=== PATIENT | male | born 1935 | race Caucasian/White ===

== ENCOUNTER 2018-06-02 14:44 | Inpatient (IN) | payer OTHER, BC ==
[2018-06-02] MEDS ORDERED: NS 1,000 ML IV ONE (15:23)
[2018-06-02 15:45] LABS: PLATELET COUNT 202 10^3/uL (150-400)
[2018-06-02] MEDS ORDERED: IOPAMIDOL (ISOVUE-370) 150 ML BTL IV ONE (15:55)
--- NOTE | 2018-06-02 16:12 | EDPHY ---
HPI/HX/ROS/PE/MDM Narrative: CHIEF COMPLAINT: Labored breathing, stuffy nose, shortness of breath HISTORY OF PRESENT ILLNESS: This is an 83-year-old male with a history of Parkinson's disease who presents with his family with reports of labored breathing which was noted yesterday, last evening, and today. Patient lives in [place] and flew here on Tuesday, 2 days ago. Daughter reports that he had some labored breathing with simple exertion yesterday, reports an episode of labored breathing last night while he was sleeping, and family again noted increased dyspnea on exertion today. Patient also reports falling yesterday. No loss of consciousness. He does have Parkinson's disease and is using a walker as he has had frequent falls over the last several months. He also reports chronic nasal congestion and stuffy nose. Patient denies a fever or chills. Denies any chest pain. Denies palpitation, vomiting, diarrhea. Patient and family denies significant cough. Denies a history of cardiac disease, hypertension, congestive heart failure. REVIEW OF SYSTEMS: A comprehensive 10 system review of systems was reviewed and is otherwise negative aside from elements mentioned in the history of present illness and medical decision making. PAST MEDICAL HISTORY: Parkinson, skin rash, BPH. SOCIAL HISTORY: Here with family members. Traveled here from [place] VITAL SIGNS Reviewed by me. GENERAL: Thin gentleman, visibly tachypneic on my examination. Blood pressure noted to be 84/50 with an O2 sat of 91%. Sounds somewhat congested. HEENT: Atraumatic. Eyes: No icterus, no injection. Mouth: moist mucous membranes. No erythema or lesions. Neck: supple with no adenopathy. LUNGS: Distant breath sounds but clear. No wheezing rhonchi or rales. CARDIAC: Regular rate and rhythm. ABDOMEN: Soft, nontender, nondistended, bowel sounds normal. BACK: No CVA tenderness. EXTREMITIES: No trauma. Trace edema at the calf. Range of motion is normal throughout. NEURO: Alert and oriented, grossly nonfocal. SKIN: Warm and dry, no rash. PSYCHIATRIC: Normal mentation, no agitation. ED Course: EKG demonstrates left bundle branch block. Bedside troponin is positive at 0.16. Chest x-ray: Central venous prominence, cardiomegaly. Streaky prominence in the right lower lobe Patient received aspirin 324 mg. D-dimer is elevated. CT scan of the chest was ordered. BNP 5500. CT scan demonstrates no pulmonary emboli, possibility of a right lower lobe pneumonia. Patient was admitted to the hospital for treatment of his shortness of breath, hypotension, thought to be secondary to cardiac causes with possibility of pneumonia. Admitting physician Dr. Moshe Cunningham. MDM: Differential diagnosis for the patient's shortness of breath was considered including but not limited to pulmonary infectious processes, COPD exacerbation, pulmonary emboli, pulmonary edema, congestive heart failure, and cardiac causes. - Data Points Imaging Results: CXR: Impression: 1. Moderate cardiomegaly with central vascular prominence. 2. Thickened bronchioles, as can be seen with underlying bronchitis. 3. Streaky right basilar opacity, likely representing subsegmental atelectasis or scarring. 4. Blunting of the right costophrenic angle, suggesting a tiny pleural effusion. 5. Favor hiatal hernia. Dictated By: Marguerite Murphy MD CT Chest: Impression: 1. No evidence of pulmonary embolic disease. 2. Cardiac enlargement and left ventricular hypertrophy 3. Hilar mediastinal adenopathy; this could be reactive with clinical correlation and follow-up to be considered as clinically directed. 4. Basilar opacities, right greater than left probably atelectasis with clinical correlation to exclude a right lower lobe pneumonia. 5. See above report for additional findings. Results called to the Emergency Department on 06/02/2018 at 16:34. Dictated By: Lc White MD Imaging: Discussed imaging studies w/ housecalls nurse Radiologist, I viewed and interpreted images myself Laboratory Results: Laboratory Results 06/02/18 15:25 06/03/18 03:30 Medications Given: Aspirin Buffered (Aspirin Ec) 81 mg PO DAILY [facility] Stop: 11/30/18 08:59 Last Admin: 06/04/18 11:52 Dose: 81 mg Carbidopa/Levodopa (Sinemet) 1 tab PO BID@ AISHWARYA Stop: 11/29/18 22:59 Last Admin: 06/04/18 13:03 Dose: Not Given Carbidopa/Levodopa (Sinemet) 1.5 tab PO BID@18 AISHWARYA Stop: 11/29/18 17:59 Last Admin: 06/04/18 13:34 Dose: 1.5 tab Cholecalciferol (Vitamin D) 1,000 units PO DAILY AISH[facility]A Stop: 11/30/18 08:59 Last Admin: 06/04/18 11:49 Dose: 1,000 units Donepezil HCl (Aricept) 10 mg PO DAILY AISHWARYA Stop: 11/30/18 08:59 Last Admin: 06/04/18 11:52 Dose: 10 mg Enoxaparin Sodium (Lovenox) 40 mg SC DAILY [facility] Stop: 11/30/18 08:59 Last Admin: 06/04/18 13:57 Dose: 40 mg Fesoterodine Fumarate (Toviaz) 8 mg PO HS [facility] Stop: 11/29/18 20:59 Last Admin: 06/03/18 21:08 Dose: 8 mg Furosemide (Lasix) 20 mg PO DAILY [facility] Stop: 12/01/18 09:44 Last Admin: 06/04/18 11:49 Dose: 20 mg Melatonin (Melatonin) 12 mg PO HS [facility] Stop: 11/29/18 20:59 Last Admin: 06/03/18 23:03 Dose: 12 mg Memantine (Namenda) 10 mg PO BID AISHWARYA Stop: 11/29/18 20:59 Last Admin: 06/04/18 11:52 Dose: 10 mg Miscellaneous Medication (Minocycline 100mg Cap) 100 mg PO HS [facility] Stop: 06/13/18 21:01 Last Admin: 06/03/18 21:08 Dose: 100 mg Miscellaneous Medication (Minocycline 100mg Cap) 200 mg PO DAILY [facility] Stop: 06/13/18 09:01 Last Admin: 06/04/18 15:03 Dose: 100 mg Pantoprazole Sodium (Protonix) 40 mg PO DAILY [facility] Stop: 11/30/18 08:59 Last Admin: 06/04/18 11:50 Dose: 40 mg Discontinued Medications Aspirin (Aspirin) 324 mg PO EDNOW ONE Stop: 06/02/18 16:15 Last Admin: 06/02/18 17:16 Dose: 324 mg Furosemide (Lasix Injection) 20 mg IVP EDNOW ONE Stop: 06/02/18 16:15 Last Admin: 06/02/18 17:15 Dose: 20 mg Furosemide (Lasix Injection) 20 mg IVP ONCE ONE Stop: 06/03/18 08:34 Last Admin: 06/03/18 10:16 Dose: 20 mg Furosemide (Lasix Injection) 20 mg IVP BIDDIUR [facility] Stop: 11/30/18 15:14 Last Admin: 06/03/18 15:53 Dose: 20 mg Sodium Chloride (Ns) 1,000 mls @ 0 mls/hr IV ONCE ONE; Wide Open PRN Reason: Protocol Stop: 06/02/18 15:24 Last Admin: 06/02/18 15:40 Dose: 1,000 mls Point of Care Test Results: Chemistry 06/02/18 15:31 POC Troponin I 0.16 ng/mL H ng/mL (0.00-0.08) General Time Seen by Provider: 06/02/18 15:01 Initial Vital Signs: Initial Vital Signs Temperature (C) 36.7 C 06/02/18 14:49 Heart Rate 74 06/02/18 14:49 Respiratory Rate 16 06/02/18 14:49 Blood Pressure 84/50 L 06/02/18 14:49 O2 Sat (%) 91 L 06/02/18 14:49 O2 Delivery Mode Nasal Cannula O2 (L/minute) 2 Allergies/Adverse Reactions: amoxicillin [Amoxicillin] Allergy (Verified 02/18/10 12:29) lansoprazole [From Prevacid] Allergy (Verified 02/18/10 12:29) Home Medications: Medication Instructions Recorded Carbidopa/Levodopa 25/100Mg 1 tab PO BID@,06/02/18 [Sinemet 25/100 MG (*)] Carbidopa/Levodopa 25/100Mg 1.5 tab PO BID@,18 06/02/18 [Sinemet 25/100 MG (*)] Cholecalciferol Vit D3 [Vitamin D3 1,000 units PO DAILY 06/02/18 (*)] Donepezil HCl [Aricept 5 MG (*)] 10 mg PO DAILY 06/02/18 Fesoterodine Fumarate [Toviaz (*)] 8 mg PO HS 06/02/18 Herbals/Supplements -Info Only 1 ea PO DAILY 06/02/18 Ketoconazole 2% [Nizoral 2% Cream 1 sahra TP BID 06/02/18 (*)] Melatonin [Melatin] 12 mg PO HS 06/02/18 Memantine HCl 10 mg PO BID 06/02/18 Minocycline HCl 100 mg PO HS 06/02/18 Minocycline HCl [Minocin 100 mg] 200 mg PO DAILY 06/02/18 Omeprazole 20 mg PO DAILY 06/02/18 Departure - Departure Disposition: [facility] Inpatient Acute Clinical Impression: Acute coronary syndrome, Parkinsons disease Dyspnea Qualifiers: Dyspnea type: dyspnea on exertion Qualified Code(s): R06.09 - Other forms of dyspnea Congestive heart failure Qualifiers: Heart failure type: unspecified Heart failure chronicity: unspecified Qualified Code(s): I50.9 - Heart failure, unspecified Condition: Fair
[2018-06-02] MEDS ORDERED: ASPIRIN 81 MG CHEWABLE TAB PO ONE (16:14)
[2018-06-02] MEDS ORDERED: FUROSEMIDE 20 MG/2 ML VIAL IVP ONE (16:14)
[2018-06-02] MEDS ORDERED: ONDANSETRON DISINTEGRATING 4 MG TAB PO PRN (16:43)
[2018-06-02] MEDS ORDERED: ACETAMINOPHEN 325 MG TAB PO PRN (16:43)
[2018-06-02] MEDS ORDERED: ONDANSETRON 4 MG/2 ML VIAL IVP PRN (16:43)
--- NOTE | 2018-06-02 17:30 | PDGENHP ---
History and Physical - Chief Complaint SOB - History of Present Illness Rodriguez Matthews is a 83 yo M with a PMHx of Parkinson's disease who presents to [facility] for BULLOCK. He reports that he currently visiting from [place]. Onset of BULLOCK was yesterday and has been worsening since. It is associated with mostly non- productive cough. He denies any wheezing, chest pain, palpitations, edema, lightheadedness, abdominal pain, dysuria, n/v, d/c, f/c. He also fell yesterday due to some weakness without any LOC or head trauma. He reports some chronic nasal congestion but denies rhinorrhea, sore throat, or other URI symptoms. History Information - Allergies/Home Medication List Allergies/Adverse Reactions: amoxicillin [Amoxicillin] Allergy (Verified 02/18/10 12:29) lansoprazole [From Prevacid] Allergy (Verified 02/18/10 12:29) Home Medications: Carbidopa/Levodopa 25/100Mg [Sinemet 25/100 MG (*)] 1 tab PO BID@,06/02/18 [Last Taken 06/02/18] Carbidopa/Levodopa 25/100Mg [Sinemet 25/100 MG (*)] 1.5 tab PO BID@, [Last Taken 06/02/18] Cholecalciferol Vit D3 [Vitamin D3 (*)] 1,000 units PO DAILY 06/02/18 [Last Taken 06/02/18] Donepezil HCl [Aricept 5 MG (*)] 10 mg PO DAILY 06/02/18 [Last Taken 06/02/18] Fesoterodine Fumarate [Toviaz (*)] 8 mg PO HS 06/02/18 [Last Taken 06/01/18] Herbals/Supplements -Info Only 1 ea PO DAILY 06/02/18 [Last Taken 06/02/18] Ketoconazole 2% [Nizoral 2% Cream (*)] 1 sahra TP BID 06/02/18 [Last Taken ] Melatonin [Melatin] 12 mg PO HS 06/02/18 [Last Taken 06/01/18] Memantine HCl 10 mg PO BID 06/02/18 [Last Taken 06/02/18] Minocycline HCl 100 mg PO HS 06/02/18 [Last Taken 06/01/18] Minocycline HCl [Minocin 100 mg] 200 mg PO DAILY 06/02/18 [Last Taken 06/02/18] Omeprazole 20 mg PO DAILY 06/02/18 [Last Taken 06/02/18] I have personally reviewed and updated: family history, medical history, social history, surgical history - Past Medical History GERD Additional medical history: Parkinson's disease - Surgical History Reports: no pertinent surgical hx - Family History Positive for: non-pertinent - Social History Smoking Status: Former smoker Review of Systems Review of Systems: ROS: 10pt was reviewed & negative except for what was stated in HPI & below Physical Exam Physical Exam: Temp Pulse Resp BP Pulse Ox 36.9 C 75 18 118/78 95 06/02/18 16:00 06/02/18 16:00 06/02/18 16:00 06/02/18 16:00 06/02/18 16:00 Constitutional: chronically ill appearing Eyes: PERRL Ears, Nose, Mouth, Throat: moist mucous membranes Cardiovascular: regular rate and rhythym Respiratory: no respiratory distress, reduced air movement Gastrointestinal: normoactive bowel sounds, soft, non-tender abdomen Skin: warm Musculoskeletal: generalized weakness Neurologic: AAOx3 Psychiatric: flat affect Lab Data & Imaging Review 06/02/18 15:25 06/02/18 15:25 WBC 8.25 10^3/uL (3.80-9.50) 06/02/18 15:25 RBC 3.89 10^6/uL (4.40-6.38) L 06/02/18 15:25 Hgb 11.7 g/dL (13.7-17.5) L 06/02/18 15:25 Hct 35.6 % (40.0-51.0) L 06/02/18 15:25 MCV 91.5 fL (81.5-99.8) 06/02/18 15:25 MCH 30.1 pg (27.9-34.1) 06/02/18 15:25 MCHC 32.9 g/dL (32.4-36.7) 06/02/18 15:25 RDW 13.5 % (11.5-15.2) 06/02/18 15:25 Plt Count 202 10^3/uL (150-400) 06/02/18 15:25 MPV 10.3 fL (8.7-11.7) 06/02/18 15:25 Neut % (Auto) 76.9 % (39.3-74.2) H 06/02/18 15:25 Lymph % (Auto) 8.4 % (15.0-45.0) L 06/02/18 15:25 [place] % (Auto) 13.0 % (4.5-13.0) 06/02/18 15:25 Eos % (Auto) 0.8 % (0.6-7.6) 06/02/18 15:25 Baso % (Auto) 0.5 % (0.3-1.7) 06/02/18 15: Nucleat RBC Rel Count 0.0 % (0.0-0.2) 06/02/18 15:25 Absolute Neuts (auto) 6.35 10^3/uL (1.70-6.50) 06/02/18 15: Absolute Lymphs (auto) 0.69 10^3/uL (1.00-3.00) L 06/02/18 15:25 Absolute Monos (auto) 1.07 10^3/uL (0.30-0.80) H 06/02/18 15:25 Absolute Eos (auto) 0.07 10^3/uL (0.03-0.40) 06/02/18 15:25 Absolute Basos (auto) 0.04 10^3/uL (0.02-0.10) 06/02/18 15: Absolute Nucleated RBC 0.00 10^3/uL (0-0.01) 06/02/18 15:25 Immature Gran % 0.4 % (0.0-1.1) 06/02/18 15: Immature Gran # 0.03 10^3/uL (0.00-0.10) 06/02/18 15:25 D-Dimer 2.03 ug/mLFEU (0.00-0.50) H 06/02/18 15:25 VBG Lactic Acid 1.7 mmol/L (0.7-2.1) 06/02/18 17:10 Sodium 131 mEq/L (135-145) L 06/02/18 15:25 Potassium 4.2 mEq/L (3.5-5.2) 06/02/18 15:25 Chloride 97 mEq/L (97-110) 06/02/18 15:25 Carbon Dioxide 23 mEq/l (22-31) 06/02/18 15:25 Anion Gap 11 mEq/L (6-14) 06/02/18 15:25 BUN 27 mg/dL (7-23) H 06/02/18 15:25 Creatinine 1.1 mg/dL (0.7-1.3) 06/02/18 15:25 Estimated GFR > 60 06/02/18 15:25 Glucose 108 mg/dL (70-100) H 06/02/18 15:25 Calcium 8.6 mg/dL (8.5-10.4) 06/02/18 15:25 POC Troponin I 0.16 ng/mL (0.00-0.08) H 06/02/18 15:31 Troponin I 0.168 ng/mL (0.000-0.034) H 06/02/18 15:25 NT-Pro-B Natriuret Pep 5900 pg/mL (0-450) H 06/02/18 15:25 Assessment & Plan Assessment: Shortness of breath - Duration 2 days, associated with non-productive cough - No hx of chronic lung disease, congesive heart failure - CXR on admission showing moderate cardiomegaly with central vascular prominence, thickened bronchioles, streaky R basilar opacity, likely atelectasis or scarring, tiny R pleural effusion, no clear etiology for SOB - CTA performed on admission due to elevated D-dimer negative for PE, showing cardiac enlargement and LVH, hilar mediastinal adenopathy, basilar opacities R> L probably atelectasis, possible RLL PNA - Currently afebrile, no leukocytosis, will hold off on abx for possible RLL PNA for now, low threshold to initiate - Resp PCR and Flu currently pending - CXR and CTA showing cardiomegaly, patient had TTE 02/2010 which showed hyperdynamic LV, diastolic dysfunction - Will order repeat TTE to further evaluate - S/p 20 mg IVP Lasix in ED, assess response and redose as needed Elevated Troponin - Trop 0.168 on admission, had elevation in the past, in setting of possible CHF exacerbation - Patient without any chest pain/discomfort, EKG with known LBBB, no acute ST-T wave changes - Will continue to trend x3 - TTE ordered as above, also evaluate for any RWMA - S/p ASA in ED, will continue qd for now Hyponatremia - Na 131 on admission - S/p 1L NS bolus in ED followed by 20 mg IVP Lasix - Repeat Na in the AM Parkinson's Disease - Continue home medications pending med rec FEN: Cardiac diet DVT PPx: Lovenox Code: DNR Dispo: Admit to Medicine
[2018-06-02] MEDS: CARBIDOPA/LEVODOPA 25 MG/100 MG TAB PO SCH ×2 (18:16→22:43)
[2018-06-02] MEDS: MELATONIN 3 MG TAB PO SCH (20:21)
[2018-06-02] MEDS: MINOCYCLINE 100 MG PO SCH (20:21)
[2018-06-02] MEDS: MEMANTINE HCL 5 MG TAB PO SCH (20:21)
[2018-06-02] MEDS: FESOTERODINE FUMARATE 8 MG TAB.ER PO SCH (20:22)
[2018-06-02] MEDS ORDERED: MINOCYCLINE HCL 50 MG CAP PO SCH (21:00)
[2018-06-03] MEDS ORDERED: FUROSEMIDE 20 MG/2 ML VIAL IVP ONE (08:33)
--- NOTE | 2018-06-03 08:33 | HOSPPROG ---
Hospitalist Progress Note Assessment/Plan: 83yo M with Parkinson's, #Acute decompensated diastolic CHF: Diastolic dysfxn w/elevated LA filling pressures noted on echo, high BNP - Lasix 20mg IV BID, monitor I/Os and weight #Elevated troponin: Minimal and flat. Suspect demand in setting of above. Mild, non-obstructive dz on 2009 cath. - Lexiscan stress w/NM for risk stratification tomorrow #Acute hypoxia: Requiring 2L. Suspect d/t pulm edema + atelectasis. RVP PCR negative, no infectious sxs. Diuresing as above. #LBBB: Known since at least 2009. #Parkinson's - Continue home meds - PT/OT #Hyponatremia: Suspect mild hypervolemia - Monitor with diuresis #Anemia: Mild. No e/o bleeding FEN: Cardiac diet DVT PPx: Lovenox Code: DNR Dispo: Remain inpatient Subjective: No chest pain. Still with some shortness of breath, can barely walk 10 feet (but per family doesn't walk very much w/Parkinson's). No leg swelling. Objective: Vital Signs Temp Pulse Resp BP Pulse Ox 37.4 C 84 20 118/70 95 06/03/18 04:00 06/03/18 04:00 06/03/18 04:00 06/03/18 04:00 06/03/18 04:00 Microbiology 06/02/18 17:00 Respiratory Panel (PCR) - Final Nasal, Sinus - [place] Viral Transport No Organisms Detected By Pcr Laboratory Results 06/03/18 03:30 06/02/18 06/03/18 06/04/18 05:59 05:59 05:59 Intake Total 200 Output Total 825 Balance -625 - Physical Exam Constitutional: no apparent distress, chronically ill appearing Eyes: PERRL, anicteric sclera Ears, Nose, Mouth, Throat: moist mucous membranes Cardiovascular: regular rate and rhythym, no murmur, rub, or gallop, No edema Respiratory: no respiratory distress, reduced air movement, inspiratory crackles Gastrointestinal: normoactive bowel sounds, soft, non-tender abdomen, no palpable masses Genitourinary: no bladder fullness, no bladder tenderness, no renal bruits, vasquez in urethra Skin: no rashes or abrasions, no fluctuance, no induration Musculoskeletal: generalized weakness Neurologic: AAOx3 Psychiatric: interacting appropriately ICD10 Worksheet Patient Problems: Problems Problem Status Onset Diastolic CHF Acute - ICD10 Problem Qualifiers (1) Diastolic CHF
[2018-06-03] MEDS ORDERED: MINOCYCLINE HCL 50 MG CAP PO SCH (09:00)
--- NOTE | 2018-06-03 10:06 | ECHO ---
[email or web address] [address] [address] Main: [phone] Echocardiography Examination Transthoracic Name: BJORN ROSA MR#: [id number] Study Date: 06/03/2018 Study Time: 08:16 AM Date of : 1935 Age: 83 year(s) Height: 165.1 cm (65 in.) Weight: 68.04 kg (150 lb.) BSA: 1.75 m2 Gender: Male Examination: Echo Contrast: Image Quality: Adequate Rhythm: Heart Rate: BP: 118 mmHg/70 mmHg Indication: BULLOCK/question CHF exacerbation. Procedure Staff Referring Physician: Rubber Covering Machine Operator: Kim Erickson RDCS Reading Physician: Ector Kay MD Requesting Provider: Ordering Physician: Moshe Cunningham Indication: BULLOCK/question CHF exacerbation. Measurements Chambers AV/MV Label Value Normal Value Label Value Normal Value EF lower range (%) 60 % AV PGmean 6 mmHg EF upper range (%) 65 % AV Vmax 1.7 m/s IVSd, 2D 0.7 cm (0.6cm - 1.1cm) MV A Vmax 1.37 m/s LVDd, 2D 4.6 cm (4.2cm - 5.9cm) MV E' lateral 0.05 m/s LVDs, 2D 3.1 cm (2.1cm - 4cm) MV E' mean 0.06 m/s LVEF, 2D 62 % (54% - 74%) MV E' septal 0.08 m/s LVEF, BP 63 % (55% - 70%) MV E Vmax 1.02 m/s LVPWd, 2D 0.8 cm (0.6cm - 1cm) MV E/A 0.74 LA Volume, BP 45 ml (18ml - 58ml) MV E/E' lateral 18.7 LADs, 2D 3.4 cm (3cm - 4cm) MV E/E' mean 15.69 LAESV index, BP 25.7 ml/m2 MV E/E' septal 13.1 (0.45 - 1.25) Additional Vessels TV/PV Label Value Normal Value Label Value Normal Value AoAsc 3.2 cm RA Pressure 10 mmHg IVC 2.2 cm (1.2cm - 2.3cm) RVSP 39 mmHg TR Pmax 29 mmHg TR Vmax 2.7 m/s Patient: BJORN ROSA Study Date: 06/03/2018 Page 1 of 3 08:16 AM Conclusions Left Ventricle: Normal global systolic left ventricular function. The ejection fraction, measured by Simpsons method, is 63 %. There is paradoxic septal motion suggestive of bundle branch block, paced cardiac rhythm, or prior cardiac surgery. Grade I Diastolic Dysfunction. Left atrial filling pressure is elevated. Left Atrium: The left atrium is normal in size. Right Atrium: The right atrium is normal in size. Tricuspid Valve: Right Ventricular systolic pressure is measured at 39 mmHg. Pulmonary artery pressure is mildly increased. Great Vessels: IVC is 2.2 cm consistent with Right Atrial Pressure of 10 mmHg. Pericardium: No pericardial effusion. Overall Conclusions: Incidental finding - liver cyst Findings Left Ventricle: Left ventricle is normal in size. Normal global systolic left ventricular function. The ejection fraction, measured by Simpsons method, is 63 %. EF range is estimated at 60 % - 65 %. Left ventricle wall thickness is normal. There is paradoxic septal motion suggestive of bundle branch block, paced cardiac rhythm, or prior cardiac surgery. Grade I Diastolic Dysfunction. Left atrial filling pressure is elevated. IVS: The septum is intact. Right Ventricle: Normal size right ventricle. Right ventricular wall thickness is normal. Right ventricular systolic function is normal. Left Atrium: The left atrium is normal in size. IAS: Normal appearing atrial septum. Right Atrium: The right atrium is normal in size. Mitral Valve: Mitral valve appears structurally normal. Trivial mitral regurgitation. No mitral valve stenosis. There is moderate mitral annular calcification. Aortic Valve: The NCC of the aortic valve is moderate to severely calcific.. Aortic leaflets exhibit normal cuspal separation. Trivial aortic regurgitation is present. There is no aortic stenosis. The aortic valve is trileaflet. Tricuspid Valve: Tricuspid valve leaflets are normal in appearance and function. Mild tricuspid regurgitation. No tricuspid valve stenosis. Right Ventricular systolic pressure is measured at 39 mmHg. Pulmonary artery pressure is mildly increased. Pulmonic Valve: Pulmonic leaflets exhibit normal cuspal separation. Trivial pulmonic valve regurgitation is present. There is no pulmonic valve stenosis. Patient: BJORN ROSA Study Date: 06/03/2018 Page 2 of 3 08:16 AM Aorta: The aorta is normal. The ascending aorta measures 3.2 cm. Great Vessels: IVC is 2.2 cm consistent with Right Atrial Pressure of 10 mmHg. Pericardium: No pericardial effusion. No pleural effusion present. Exam Details Procedure Ordered: Echo Procedure Status: Routine study Image Quality: Adequate Facility Location: Cardiac Echo 1 (No Signature Object) Patient: BJORN ROSA Study Date: 06/03/2018 Page 3 of 3 08:16 AM [id number]
[2018-06-03] MEDS: PANTOPRAZOLE SODIUM 40 MG TAB PO SCH (10:16)
[2018-06-03] MEDS: MEMANTINE HCL 5 MG TAB PO SCH ×2 (10:16→21:07)
[2018-06-03] MEDS: ASPIRIN EC 81 MG TAB PO SCH (10:16)
[2018-06-03] MEDS: DONEPEZIL HCL 5 MG TAB PO SCH (10:16)
[2018-06-03] MEDS: CHOLECALCIFEROL VIT D3 1,000 UNITS TAB PO SCH (10:16)
--- NOTE | 2018-06-03 10:30 | ASMTCMCOM ---
CM Note CM Note Notes: Chart reviewed for discharge planning purposes. 83 year old male admitted through the ED with increased SOB. Cardiomegaly on CXR and BNP is elevated. Needs to be determined. Plan: TBD Date Signed: 06/03/2018 10:30 AM Electronically Signed By:Fadumo Reich RN
[2018-06-03] MEDS: ENOXAPARIN 40 MG/0.4 ML SYR SC SCH (10:36)
[2018-06-03] MEDS: CARBIDOPA/LEVODOPA 25 MG/100 MG TAB PO SCH ×4 (11:46→23:04)
[2018-06-03] MEDS: MINOCYCLINE 100 MG PO SCH ×2 (12:55→21:08)
[2018-06-03] MEDS ORDERED: FUROSEMIDE 20 MG/2 ML VIAL IVP SCH (15:15)
--- NOTE | 2018-06-03 15:36 | CPEKG ---
Test Reason : OPEN Blood Pressure : / mmHG Vent. Rate : 071 BPM Atrial Rate : 071 BPM P-R Int : 143 ms QRS Dur : 140 ms QT Int : 444 ms P-R-T Axes : 062 -11 034 degrees QTc Int : 483 ms Sinus rhythm Left bundle branch block Confirmed by Sana Galdamez ([id number]) on 06/03/2018 3:36:31 PM Referred By: Sana Galdamez Confirmed By:Sana Galdamez
[2018-06-03] MEDS: FESOTERODINE FUMARATE 8 MG TAB.ER PO SCH (21:08)
[2018-06-03] MEDS: MELATONIN 3 MG TAB PO SCH (23:03)
--- NOTE | 2018-06-04 09:30 | HOSPPROG ---
Hospitalist Progress Note Assessment/Plan: 83yo M with Parkinson's here with hypoxia and mildly elevated troponin. #Acute decompensated diastolic CHF: Diastolic dysfxn w/elevated LA filling pressures noted on echo, high BNP - Stop IV lasix, switch to 20mg PO daily #Elevated troponin: Minimal and down-trended. Suspect demand in setting of above and hypoxia. Mild, non-obstructive dz on 2009 cath. - Lexiscan stress w/NM for risk stratification today #Acute hypoxia: Requiring 2L. Suspect d/t pulm edema + ? aspiration pneumonitis. RVP PCR negative, no infectious sxs - MISSILE INSPECTOR to provide aspiration prevention education - Diuresing as above - Home O2 eval #LBBB: Known since at least 2009. #Parkinson's - Continue home meds - PT/OT - recommending home care vs SNF. Patient from out of town and refusing SNF. Will discuss home care with patient/family and case management #Hyponatremia: Stable. Suspect mild hypervolemia - Monitor with diuresis #Anemia: Mild. No e/o bleeding FEN: Cardiac diet DVT PPx: Lovenox Code: DNR Dispo: Remain inpatient, plan to dc later today Subjective: Didn't get much sleep. Feeling ok. No labored breathing. No chest pain. Has had issues with aspiration in past. Objective: Vital Signs Temp Pulse Resp BP Pulse Ox 36.5 C 86 20 111/69 94 06/04/18 08:00 06/04/18 08:00 06/04/18 08:00 06/04/18 08:00 06/04/18 08:00 Laboratory Results 06/04/18 03:35 06/03/18 06/04/18 06/05/18 05:59 05:59 05:59 Intake Total 200 1200 200 Output Total 825 151 Balance -625 1049 200 - Physical Exam Constitutional: no apparent distress, appears nourished, not in pain Eyes: PERRL, anicteric sclera, EOMI Ears, Nose, Mouth, Throat: moist mucous membranes, hearing normal, ears appear normal, no oral mucosal ulcers Cardiovascular: regular rate and rhythym, no murmur, rub, or gallop, No edema Respiratory: no respiratory distress, no rales or rhonchi, reduced air movement (bases) Gastrointestinal: normoactive bowel sounds, soft, non-tender abdomen, no palpable masses Genitourinary: no bladder fullness, no bladder tenderness, no renal bruits Skin: no rashes or abrasions, no fluctuance, no induration Musculoskeletal: generalized weakness Neurologic: AAOx3 Psychiatric: interacting appropriately ICD10 Worksheet Patient Problems: Problems Problem Status Onset Diastolic CHF Acute - ICD10 Problem Qualifiers (1) Diastolic CHF
[2018-06-04] MEDS ORDERED: REGADENOSON 0.4 MG/5 ML SYR IVP ONE (10:26)
--- NOTE | 2018-06-04 10:56 | PDMN ---
Medical Necessity Medical necessity: Pt meets IP criteria per MD and MCG M-190 (Heart Failure); los > 2 mn for ongoing tx and management of acute decompensated diastolic CHF with elevated troponin, hyponatremia and hypoxia; requiring IVP diuretics, strict I&O, O2, and serial labs; hx Parkinson's disease.
--- NOTE | 2018-06-04 10:56 | PDCARST ---
CAR Stress Test Results Type of Stress Test: Lucie MPI Indication: CHF with known CAD by angiography in 2010, and desire for non invasive test Description of Procedure: After consent for procedure were signed. Physical exam without gross, acute pathology noted. Heart rate, blood pressure, and oxygen saturations were all monitored at the same time as real time telemetry. Impression: Baseline ECG with LBBB pattern and occasional PVCs. Expected dyspnea was noted with infusion. No ECG changes noted. Mild hypotension developed and resolved. No dynamic ECG changes were noted (aware that the patient has baseline LBBB pattern). Conclusion: Nuclear images are pending. Unremarkable Lucie infusion
[2018-06-04] MEDS: CHOLECALCIFEROL VIT D3 1,000 UNITS TAB PO SCH (11:49)
[2018-06-04] MEDS: FUROSEMIDE 20 MG TAB PO SCH (11:49)
[2018-06-04] MEDS: PANTOPRAZOLE SODIUM 40 MG TAB PO SCH (11:50)
[2018-06-04] MEDS: MEMANTINE HCL 5 MG TAB PO SCH ×2 (11:52→20:28)
[2018-06-04] MEDS: ASPIRIN EC 81 MG TAB PO SCH (11:52)
[2018-06-04] MEDS: DONEPEZIL HCL 5 MG TAB PO SCH (11:52)
--- NOTE | 2018-06-04 11:53 | PDHOMEO2F ---
Home Oxygen Face to Face Home Orders: I certify that a physician or a nurse practitioner or physician's cook's assistant has had a oufi-ke-rnay encounter with this patient on the date of this order due to the diagnosis listed, which relates to the primary reason the patient requires home oxygen. Alternative treatments have been tried, or considered, and deemed ineffective. It is anticipated that supplemental oxygen will result in improvement with treatment. Home oxygen qualifying diagnosis: rsepiratory failure with hypoxia SpO2 on room air (%): 87 Frequency of home oxygen needed: continuous Home oxygen liters per minute: 2 Home oxygen delivery device: nasal cannula Concentrator: Yes E-tanks for mobility and back up: Yes If ordering portable O2, is the patient mobile in the home?: Yes I certify that, based on these findings, the home oxygen is medically necessary for this patient for the following length of time. Length of time home oxygen needed: 99 years
[2018-06-04] MEDS: CARBIDOPA/LEVODOPA 25 MG/100 MG TAB PO SCH ×4 (13:03→23:20)
[2018-06-04] MEDS ORDERED: SODIUM CL NASAL 45 ML BTL EACHNARE PRN (13:09)
[2018-06-04] MEDS: ENOXAPARIN 40 MG/0.4 ML SYR SC SCH (13:57)
[2018-06-04] MEDS: MINOCYCLINE 100 MG PO SCH ×2 (15:03→20:32)
[2018-06-04] MEDS: MELATONIN 3 MG TAB PO SCH (20:28)
[2018-06-04] MEDS: FESOTERODINE FUMARATE 8 MG TAB.ER PO SCH (20:34)
[2018-06-04] MEDS ORDERED: POLYETHYLENE GLYCOL 3350 17 GM PKT PO PRN (20:35)
[2018-06-04] MEDS: CARBOXYMETHYLCELLULOSE 0.5% 0.4 ML DROPERETTE EACHEYE PRN (20:45)
[2018-06-05] MEDS: ENOXAPARIN 40 MG/0.4 ML SYR SC SCH (09:05)
[2018-06-05] MEDS: PANTOPRAZOLE SODIUM 40 MG TAB PO SCH (09:06)
[2018-06-05] MEDS: ASPIRIN EC 81 MG TAB PO SCH (09:06)
[2018-06-05] MEDS: FUROSEMIDE 20 MG TAB PO SCH (09:06)
[2018-06-05] MEDS: MEMANTINE HCL 5 MG TAB PO SCH (09:06)
[2018-06-05] MEDS: DONEPEZIL HCL 5 MG TAB PO SCH (09:06)
[2018-06-05] MEDS: CARBIDOPA/LEVODOPA 25 MG/100 MG TAB PO SCH ×2 (09:07→13:46)
[2018-06-05] MEDS: CHOLECALCIFEROL VIT D3 1,000 UNITS TAB PO SCH (09:07)
[2018-06-05] MEDS: MINOCYCLINE 100 MG PO SCH (09:14)
[2018-06-05 11:37] VITALS: BP 89/59
[2018-06-05] MEDS: CARBOXYMETHYLCELLULOSE 0.5% 0.4 ML DROPERETTE EACHEYE PRN (12:14)
--- NOTE | 2018-06-05 14:07 | ASMTCMCOM ---
CM Note CM Note Notes: Patients case discussed in treatment rounds. Patient is flying back to [place] tomorrow. Patient will follow up with cards in [place]. Patients provider in [place] will set him up with home care services. CM available for changes. Plan: Independent Date Signed: 06/05/2018 01:59 PM Electronically Signed By:Deana Gil
--- NOTE | 2018-06-05 14:38 | PDDCSUM ---
Discharge Summary Discharge Summary: Date of Admission: 06/02/2018 Date of Discharge: 06/05/2018 Studies: CTA chest, TTE, lexiscan stress test with MPI Discharge Diagnoses: 1. Acute hypoxia 2/2 mild pulmonary edema and ? aspiration pneumonitis 2. Acute decompensated diastolic CHF 3. Elevated troponin with abnormal nuclear stress test 4. LBBB (chronic) 5. Parkinson's disease 6. Hyponatremia 7. Anemia, mild Brief Hospital Course: 83yo M with Parkinson's presented with several days of shortness of breath. He is visiting his family from [place]. He has somewhat limited mobility at baseline due to his Parkinson's but was noting more significant dyspnea on exertion than normal. He was mildly hypoxemic. He underwent CTA of his chest which was negative for PE but did demonstrate bibasilar opacities, small R pleural effusion, hilar mediastinal adenopathy, and LVH. His BNP was elevated at 5900 and his troponin was also elevated, peaking at 0.171. His ECG demonstrated a LBBB, which is chronic, but no acute ischemia. He did not have any chest pain. He was diuresed and clinically improved. He also met with our speech therapists who gave him strategies to prevent aspiration. A 2D echocardiogram demonstrated normal LV function (LVEF 63%), paradoxical septal motion related to LBBB, grade I diastolic dysfunction, elevated LA filling pressures, and mild TR but no hemodynamically significant valvular abnormalities. He then underwent a Lexiscan stress test with MPI which showed a decreased LVEF of 39%, hypokinesis of the inferoseptal and inferolateral milan, and suspected ischemia of these territories. We discussed next steps with the patient and his family, including angiography and medical management. He was hesitant to undergo an invasive procedure at present. He would like to discuss with his workday consultant back in [place] and made an appointment at their clinic in 2 days. He was started on aspirin 81mg daily and lasix 20mg daily. He was requiring 1-2L of supplemental oxygen via nasal canula. I believe him to be stable condition to travel to this appointment as he is symptom free, hemodynamically stable, and without e/o malignant arrhythmias. Medications: Please refer to EMR for complete list. We added aspirin 81mg daily and lasix 20mg daily to his regimen. Otherwise, no changes. Follow Up Plan: Patient has appointment scheduled with his workday consultant in [place] in 2 days on 06/07/2018. I recommend repeat BMP to monitor serum sodium and creatinine. Physical Exam: Vitals and telemetry reviewed. Infrequent PVCs noted. Alert and oriented, rrr without murmur, lungs with diminished sounds at bilateral bases but no crackles or wheezes, abdomen soft and nt, no leg edema or JVD.
== END 2018-06-05 16:45 | disposition home or self-care (01) | DRG 291 ==
LOC: INTOOBSV 16:16 → F2W 17:28 → OBSVTOIN 06-03 16:37
PROVIDERS: ADMIT Internal Medicine; ATTEND Internal Medicine
DX: I50.31 Acute diastolic (congestive) heart failure (principal); J69.0 Pneumonitis due to inhalation of food and vomit; E87.1 Hypo-osmolality and hyponatremia; G20 Parkinson's disease; D64.9 Anemia, unspecified; N40.0 Benign prostatic hyperplasia without lower urinary tract symptoms; I44.7 Left bundle-branch block, unspecified; Z91.81 History of falling; Z87.891 Personal history of nicotine dependence
CPT/HCPCS: 84484-ER; 92610-GN; 96374; 97110-GP; 97116-GP; 97162-GP; 97166-GO; 97530-GP; 97535-GO; A9500; G0378; J1650; J1940; J2785; Q9967